=== PATIENT | male | born 1985 | race African-American/Black ===

== ENCOUNTER 2018-03-21 13:26 | Emergency (ER) | payer BC ==
[2018-03-21] MEDS ORDERED: LIDOCAINE 1% INJ-PF (10 MG/ML) 30 ML SDV INJ ONE (15:18)
[2018-03-21] MEDS ORDERED: OXYCODONE-ACETAMINOPHEN 5-325 MG TABLET PO ONE (15:56)
--- NOTE | 2018-03-21 16:58 | ER Document Report ---
ED Skin Rash/Insect Bite/Abscs - General Chief Complaint: Abscess Stated Complaint: ABSCESS/GROIN AREA Time Seen by Provider: 03/21/18 14:37 Mode of Arrival: Ambulatory Information source: Patient, Relative Notes: Patient is a 33-year-old male comes emergency room complaining of having a growth in his left groin area. Patient states his been about 2-3 days and that he denies any history of seeing or feeling a pustule or trying to pop the pimple. Patient denies any past medical history he does not smoke and denies any fevers. He does state that it is very difficult to walk because it hurts. TRAVEL OUTSIDE OF THE [place] IN LAST 30 DAYS: No - HPI Patient complains to provider of: Skin rash/lesion, Tender/swollen area Onset: Other - 3 days Onset/Duration: Gradual, Persistent, Worse Quality of pain: Cramping, Throbbing Severity: Moderate Pain Level: 3 Skin Character: Abscess Skin Temperature: Hot Quality of rash: Painful Identify cause: No Exacerbated by: Movement, Walking Relieved by: Denies Similar symptoms previously: No Recently seen / treated by doctor: No - Related Data Allergies/Adverse Reactions: peanut Allergy (Verified 03/21/18 13:28) Past Medical History - General Information source: Patient, Parent - Social History Smoking Status: Never Smoker Cigarette use (# per day): No Chew tobacco use (# tins/day): No Smoking Education Provided: No Frequency of alcohol use: None Drug Abuse: None Family History: Reviewed & Not Pertinent Patient has suicidal ideation: No Patient has homicidal ideation: No Renal/ Medical History: Denies: Hx Peritoneal Dialysis Review of Systems - Review of Systems Constitutional: No symptoms reported EENT: No symptoms reported Cardiovascular: No symptoms reported Respiratory: No symptoms reported Gastrointestinal: No symptoms reported Genitourinary: No symptoms reported Male Genitourinary: No symptoms reported Musculoskeletal: No symptoms reported Skin: Other - Abscess Hematologic/Lymphatic: No symptoms reported Neurological/Psychological: No symptoms reported -: Yes All other systems reviewed and negative Physical Exam - Vital signs Vitals: Temp Pulse Resp BP Pulse Ox 98.3 F 77 18 113/74 99 03/21/18 13:30 03/21/18 13:30 03/21/18 13:30 03/21/18 13:30 03/21/18 13:30 Interpretation: Normal - Notes Notes: PHYSICAL EXAMINATION: GENERAL: well-nourished and well-developed and in no acute distress. Although he does appear somewhat uncomfortable. HEAD: Atraumatic, normocephalic. EYES: Pupils equal round and reactive to light, extraocular movements intact, sclera anicteric, conjunctiva are normal. ENT: Nares patent, oropharynx clear without exudates. Moist mucous membranes. NECK: Normal range of motion, supple without lymphadenopathy LUNGS: Breath sounds clear to auscultation bilaterally and equal. No wheezes rales or rhonchi. HEART: Regular rate and rhythm without murmurs ABDOMEN: Soft, nontender, nondistended abdomen. No guarding, no rebound. No masses appreciated. Musculoskeletal: examination of patient's left groin area shows he has an area of the appears to be an abscess that is approximately 6 cm across by about 3-1/ 2 cm deep very fluctuant very indurated. It appears as if this may come from a infected hair follicle and just expanded. Very tender to palpate in the area as well. It is nonpulsatile. NEUROLOGICAL: Cranial nerves grossly intact. Normal speech, normal gait. Normal sensory, motor exams PSYCH: Normal mood, normal affect. SKIN: Warm, Dry, normal turgor, no rashes or lesions noted. Course - Re-evaluation Re-evalutation: 03/22/18 01:43 EST Early on in the exam is apparent the patient is a high functioning MR patient. He has worked it [employer] for past 13 years. He lives by himself and is accompanied by his mother today for support. Patient has no medical problems currently on no medications. He is concerned about making it to work tomorrow. I have informed him that given the size of this abscess that it probably be a couple days where he can go back. I have explained to him without mom present that it is right next to his penis and that it will be uncomfortable but he will be able to manage this without a problem. I explained to him when it was going to burn and how bad it would feel and patient agreed to have me do the incision and drainage. At the time of the I&D I had our tech Cecy coming with me. She was an absolute she will she kept the patient's mind distracted talking about [place] and he found that exciting. We were able to distract him along enough for me to anesthetize the area and to I&D with a #11 blade and pack about 6-8 inches of iodoform back into it. And he handled all this very well. I have explained to the patient and mom the use of warm moist compresses I put him on 2 antibiotics and I gave him a little pain medication which mom understands she should monitor and patient went home he will come back in 48 hours to have the packing pulled although I have informed him that if it comes out is not a huge deal to continue with the moist compresses do not sit in the bathtub do not get a hoffman or ocean or stream and if it looks looking good according to mother then he does not have to return to the ER I have given him a work note until to return on Friday. - Vital Signs Vital signs: Temp Pulse Resp BP Pulse Ox 98.2 F 65 16 110/63 100 03/21/18 17:38 03/21/18 17:38 03/21/18 17:38 03/21/18 17:38 03/21/18 17:38 Procedures - Incision and Drainage Left Groin Time completed: 16:56 Type: Complex Anesthetic type: 1% Lidocaine mL's of anesthetic: 8 Blade size: 11 I&D procedure: Betadine prep applied Incision Method: Incision made by scalpel Amount/type of drainage: 60 ml Male anatomy: 1 - Area of abscess Discharge - Discharge Clinical Impression: Abscess of left groin Condition: Stable Disposition: HOME, SELF-CARE Instructions: Abscess ([facility]), Cephalexin ([facility]), Clindamycin ([facility]), MRSA Cellulitis ([facility]), Oral Narcotic Medication ([facility]), Post Incision and Drainage Additional Instructions: Home today and use warm moist compresses 3-4 times a day as we discussed just with a warm wash rag. If the string comes out is not a huge deal continue with the warm compresses. Return to ER in 48 hours to have the packing removed. If the packing comes out and it looks well you do not have to return to ER in 48 hours. It would be good practice however to do so just to be safe. You may use ibuprofen for any pain or discomfort after tonight. Take all of the antibiotics as directed. Should you have any side effects from the antibiotics again return to ER before stopping them. Prescriptions: Cephalexin Monohydrate [Keflex 500 mg Capsule] 500 mg PO Q6H 7 Days #24 capsule Clindamycin HCl [Cleocin 300 mg Capsule] 300 mg PO QID #40 capsule Hydrocodone/Acetaminophen [[place] 5-325 mg Tablet] 1 tab PO Q6 PRN #10 tablet PRN Reason: Forms: Return to Work
[2018-03-21 17:39] VITALS: BP 110/63
== END 2018-03-21 17:41 | disposition home or self-care (01) ==
LOC: ER 13:26
DX: L02.214 Cutaneous abscess of groin (principal); Z91.010 Allergy to peanuts
CPT/HCPCS: 99283; 87070; 87205; 87075; 87077; 10060; A6266; J3490

== ENCOUNTER 2018-03-23 10:35 | Emergency (ER) | payer BC ==
[2018-03-23 10:41] VITALS: BP 117/73
--- NOTE | 2018-03-23 11:04 | ER Document Report ---
HPI - HPI Patient complains to provider of: Wound recheck Onset: Last week Onset/Duration: Better Pain Level: 0 Context: Patient presents for wound recheck for an abscess that had incision and drainage procedure performed 2 days ago. Patient states he has been compliant with taking the medication. Patient denies any fever. Patient denies any known history of MRSA. Associated Symptoms: denies: Fever Exacerbated by: Denies Relieved by: Denies Similar symptoms previously: No Recently seen / treated by doctor: Yes - ROS ROS below otherwise negative: Yes Systems Reviewed and Negative: Yes All other systems reviewed and negative - CONSTITUTIONAL Constitutional: DENIES: Fever, Chills - GASTROINTESTINAL Gastrointestinal: DENIES: Abdominal Pain, Nausea - DERM Skin Color: Normal Notes: Abscess status post incision and drainage Past Medical History - General Information source: Patient - Social History Smoking Status: Never Smoker Chew tobacco use (# tins/day): No Frequency of alcohol use: Occasional Drug Abuse: None Occupation: Retail Family History: Reviewed & Not Pertinent Patient has suicidal ideation: No Patient has homicidal ideation: No - Medical History Medical History: Other - MR Renal/ Medical History: Denies: Hx Peritoneal Dialysis Surgical Hx: Negative Vertical Provider Document - CONSTITUTIONAL Agree With Documented VS: Yes Exam Limitations: No Limitations General Appearance: WD/WN, No Apparent Distress - INFECTION CONTROL TRAVEL OUTSIDE OF THE [place] IN LAST 30 DAYS: No - HEENT HEENT: Atraumatic, Normocephalic - NECK Neck: Normal Inspection - RESPIRATORY Respiratory: Breath Sounds Normal, No Respiratory Distress - CARDIOVASCULAR Cardiovascular: Regular Rate, Regular Rhythm - MUSCULOSKELETAL/EXTREMETIES Musculoskeletal/Extremeties: MAEW - NEURO Level of Consciousness: Awake, Alert, Appropriate Motor/Sensory: No Motor Deficit - DERM Integumentary: Warm, Dry, Abscess - Resolving abscess to left groin Course - Re-evaluation Re-evalutation: 03/23/18 11:02 Packing removed from wound, no additional purulent drainage able to be expressed. No significant erythema, area not tender to palpation 03/23/18 11:03 wound culture is still pending although has not had any growth thus far. - Vital Signs Vital signs: Temp Pulse Resp BP Pulse Ox 98.6 F 68 15 117/73 100 03/23/18 10:40 03/23/18 10:40 03/23/18 10:40 11/05/18 10:40 03/23/18 10:40 - Laboratory Laboratory results interpreted by me: 03/23/18 17:59 Reviewed wound culture results that are still pending from previous ER visit Discharge - Discharge Clinical Impression: Abscess of left groin, Encounter for wound re-check Condition: Stable Disposition: HOME, SELF-CARE Instructions: Abscess ([facility]), Antibiotic Therapy ([facility]), Dressing Instructions for Open Wounds ([facility]) Additional Instructions: Return immediately for any new or worsening symptoms Followup with your primary care provider, call tomorrow to make a followup appointment Continue your antibiotics as previously prescribed Referrals: [facility] [Provider Group] - Follow up as needed
== END 2018-03-23 11:22 | disposition home or self-care (01) ==
LOC: ER 10:35
DX: L02.214 Cutaneous abscess of groin (principal)
CPT/HCPCS: 99282